=== PATIENT | female | born 1945 | race Two or more races ===

== ENCOUNTER 2024-01-01 13:33 | Emergency (ER) | payer MEDICARE, MEDICAID ==
[~2024-01-01] VITALS: Ht 167.6 cm; Wt 60.0 kg
[2024-01-01 13:37] VITALS: O2SAT 98
[2024-01-01] MEDS: SODIUM CHLORIDE 0.9% 1,000 ML IV ONE (14:03)
[2024-01-01 14:33] LABS: BASOPHILS % 0.6 % (0.0-2.0); EOSINOPHILS % 1.8 % (0.0-5.0); HEMATOCRIT. 30.3 % (36.0-48.0); HEMOGLOBIN. 10.2 g/dL (12.0-16.0); LYMPHOCYTES % 34.6 % (20.0-50.0); MEAN CORPUSCULAR HEMOGLOBIN 30.9 pg (28.0-32.0); MEAN CORPUSCULAR HGB CONC 33.6 g/dL (31.0-37.0); MEAN PLATELET VOLUME 9.9 fl (7.4-10.4); PLATELET 158 x1000/uL (130-400); RED CELL DISTRIBUTION WIDTH 13.3 % (11.6-14.6); WHITE BLOOD COUNT 6.1 x1000/uL (4.5-11.0)
[2024-01-01 14:36] LABS: CARBON DIOXIDE 26 mEq/L (21-32); CHLORIDE 110 mEq/L (98-107); POTASSIUM 4.1 mEq/L (3.5-5.1)
[2024-01-01 14:37] LABS: CALCIUM 8.6 mg/dL (8.7-10.4)
[2024-01-01 14:41] LABS: CREATININE 1.3 mg/dL (0.6-1.0)
[2024-01-01 14:42] LABS: GLUCOSE 99 mg/dL (70-105); UREA NITROGEN BLOOD 15 mg/dL (9-23)
[2024-01-01 14:43] LABS: ALANINE AMINOTRANSFERASE 12 IU/L (10-49); ALBUMIN 3.8 g/dL (3.2-4.8); ASPARTATE AMINOTRANSFERASE 17 IU/L (<34)
[2024-01-01 14:44] LABS: BILIRUBIN TOTAL 0.5 mg/dL (0.1-1.0); PROTHROMBIN TIME 11.4 sec (9.6-11.0)
[2024-01-01 14:53] LABS: TROPONIN I HIGH SENSITIVITY < 4 ng/L (3.0-34)
[2024-01-01 14:57] LABS: THYROID STIMULATING HORMONE 0.69 uIU/mL (0.55-4.78)
[2024-01-01 15:07] LABS: SODIUM 139 mEq/L (136-145)
[2024-01-01 17:40] LABS: TROPONIN I HIGH SENSITIVITY < 4 ng/L (3.0-34)
[2024-01-01 19:07] LABS: TROPONIN I HIGH SENSITIVITY < 4 ng/L (3.0-34)
[2024-01-01 20:35] VITALS: BP 158/67; PULSE 86; RESP 18; TEMP 36.66960; O2SAT 100
== END 2024-01-01 21:15 | disposition short-term general hospital (02) ==
LOC: ER 13:33 → EDBD 13:33 → ER 21:15
DX: R55 Syncope and collapse (principal); I10 Essential (primary) hypertension
CPT/HCPCS: 99285; 96360; 96361; 71045; 80053; 83605; 84443; 85025; 85610; 84484; 93005; 36415; J7030